=== PATIENT | male | born 1990 | race American Indian/Alaskan Native ===

== ENCOUNTER 2019-05-31 18:20 | Emergency (ER) | payer SELFPAY ==
[2019-05-31 18:35] VITALS: BP 121/64
[2019-05-31] MEDS ORDERED: ACETAMINOPHEN 500 MG TAB PO ONE (19:37)
[2019-05-31] MEDS ORDERED: IBUPROFEN 600 MG TAB PO ONE (19:37)
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
== END 2019-05-31 20:54 | disposition home or self-care (01) ==
LOC: ED 18:20
DX: M62.830 Muscle spasm of back (principal); M62.838 Other muscle spasm; Z79.899 Other long term (current) drug therapy; V49.49XA Driver injured in collision with other motor vehicles in traffic accident, initial encounter; Y93.89 Activity, other specified; Y92.410 Unspecified street and highway as the place of occurrence of the external cause; Y99.8 Other external cause status
CPT/HCPCS: 72040; 72100; 99283

== ENCOUNTER 2021-04-15 18:53 | Emergency (ER) | payer OTHER ==
--- NOTE | 2021-04-15 22:33 | XRay Report ---
XR femur 2+V LT, XR hip 2-3V LT INDICATION / CLINICAL INFORMATION: LEFT LEG PAIN. COMPARISON: None available. FINDINGS: Left hip/pelvis: No acute fracture or malalignment. No focal soft tissue abnormality. Left femur: No acute fracture or malalignment. No focal soft tissue abnormality. IMPRESSION: No acute process of the left hip or femur. Signer Name: Xiang Alexandre MD Signed: 04/15/2021 10:28 PM Workstation Name: [id number]
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
[2021-04-16 03:13] VITALS: BP 115/76
== END 2021-04-16 03:14 | disposition home or self-care (01) ==
LOC: ED 18:53
DX: M79.10 Myalgia, unspecified site (principal); V89.2XXA Person injured in unspecified motor-vehicle accident, traffic, initial encounter; Y93.89 Activity, other specified; Y92.89 Other specified places as the place of occurrence of the external cause; Y99.8 Other external cause status
CPT/HCPCS: 99283